=== PATIENT | male | born 1955 | race Caucasian/White ===

== ENCOUNTER 2024-09-24 13:56 | Inpatient (IN) | payer MEDICARE, OTHER ==
[~2024-09-24] VITALS: Ht 177.8 cm; Wt 95.3 kg
[2024-09-24 15:01] LABS: BASOPHILS # (AUTO) 0.1 K/uL (0.0-0.2); BASOPHILS % (AUTO) 0.6 % (0.0-2.0); EOSINOPHILS # (AUTO) 0.2 K/uL (0.0-0.7); EOSINOPHILS % (AUTO) 1.9 % (0.0-6.0); HEMATOCRIT 41 % (39-51); HEMOGLOBIN 14.8 g/dL (13.5-17.5); LYMPHOCYTES # (AUTO) 1.3 K/uL (0.8-4.8); LYMPHOCYTES % (AUTO) 15.1 % (20.0-44.0); MEAN CORPUSCULAR HEMOGLOBIN 33 PG (26.0-33.0); MEAN CORPUSCULAR HGB CONC 36 g/dl (31.0-36.0); MEAN CORPUSCULAR VOLUME 91 fL (80-96); MONOCYTES # (AUTO) 0.6 K/uL (0.1-1.30); MONOCYTES % (AUTO) 7.6 % (2.0-12.0); NEUTROPHILS # (AUTO) 6.4 K/uL (1.8-8.9); NEUTROPHILS % (AUTO) 74.8 % (43.0-81.0); PLATELET COUNT (AUTO) 220 K/uL (150-450); RED BLOOD CELL COUNT(AUTO) 4.52 MIL/uL (4.5-6.0); RED CELL DISTRIBUTION WIDTH 13.6 % (11.5-15.0); WHITE BLOOD COUNT (AUTO) 8.5 K/uL (4.3-11.0)
[2024-09-24 15:16] LABS: CALCIUM, SERUM 9.6 mg/dL (8.5-10.1); CARBON DIOXIDE 28 mmol/L (21-32); CHLORIDE 93 mmol/L (98-107); CREATININE 0.9 mg/dL (0.6-1.3); GLUCOSE 105 mg/dL (74-106); POTASSIUM 4.2 mmol/L (3.5-5.1); SODIUM SERUM 133 mmol/L (136-145); UREA NITROGEN, BLOOD 16 mg/dL (7-18)
[2024-09-24 15:24] LABS: ALANINE AMINOTRANSFERASE 15 U/L (12-78); ALBUMIN 4.3 g/dL (3.4-5.0); ALKALINE PHOSPHATASE 66 U/L (46-116); ASPARTATE AMINOTRANSFERASE 13 U/L (15-37); BILIRUBIN,DIRECT 0.3 mg/dL (0.0-0.2); BILIRUBIN,TOTAL 0.7 mg/dL (0.2-1.0); TOTAL PROTEIN, SERUM 7.8 g/dL (6.4-8.2)
[2024-09-24 15:28] LABS: ACETAMINOPHEN <10 ug/ml (10-30); ALCOHOL, BLOOD < 3 mg/dL (0-10); SALICYLATE 0.3 mg/dL (2.8-20.0)
[2024-09-24 16:05] LABS: APPEARANCE,URINE CLEAR (CLEAR); BILIRUBIN,URINE NEGATIVE (NEGATIVE); BLOOD, URINE NEGATIVE Ery/uL (NEGATIVE); COLOR,URINE YELLOW (YELLOW); KETONES,URINE TRACE mg/dL (NEGATIVE); LEUKOCYTE ESTERASE ,URINE NEGATIVE (NEGATIVE); NITRITE, URINE NEGATIVE (NEGATIVE); PH,URINE 5.5 (5.0-8.0); PROTEIN,URINE NEGATIVE (NEGATIVE); UGLUCOSE NEGATIVE (NEGATIVE); UROBILINOGEN,URINE 0.2 EU/dL (0.2)
[2024-09-24 16:11] LABS: AMPHETAMINE, URINE NEGATIVE (NEGATIVE); BARBITURATE, URINE NEGATIVE (NEGATIVE); BENZODIAZEPINE, URINE NEGATIVE (NEGATIVE); CANNABINOID, URINE NEGATIVE (NEGATIVE); COCCAINE, URINE NEGATIVE (NEGATIVE); OPIATE, URINE NEGATIVE (NEGATIVE); PHENCYCLIDINE SCREEN,URINE NEGATIVE (NEGATIVE)
[2024-09-24 16:20] LABS: ADD URINE CULTURE NO; BACTERIA,URINE Rare /HPF (None Seen); RBC,URINE 0-2 /HPF (0-2); SQUAMOUS EPITHELIAL CELL,UR None Seen /HPF (None Seen); WBC,URINE 0-2 /HPF (0-3)
[2024-09-24] MEDS ORDERED: FLUV50TA3 PO (17:03)
[2024-09-24] MEDS ORDERED: NA P133E RC (17:03)
[2024-09-24] MEDS ORDERED: EMPA10TA PO (17:03)
[2024-09-24] MEDS ORDERED: PANT20TA2 PO (17:03)
[2024-09-24] MEDS ORDERED: FLUD0.1T PO (17:03)
[2024-09-24] MEDS ORDERED: CHOL400T28 PO (17:03)
[2024-09-24] MEDS ORDERED: ACET-2030 PO (17:03)
[2024-09-24] MEDS ORDERED: FURO-145 PO (17:03)
[2024-09-24] MEDS ORDERED: MAG30ORA PO (17:03)
[2024-09-24] MEDS ORDERED: BENZ0.5T43 PO (17:03)
[2024-09-24] MEDS ORDERED: BISA10SU11 RC (17:03)
[2024-09-24] MEDS ORDERED: METF-440 PO (17:03)
[2024-09-24] MEDS ORDERED: IBUP-1955 PO (17:03)
[2024-09-24] MEDS ORDERED: POLY17PO4 PO (17:03)
[2024-09-24] MEDS ORDERED: RISP3TAB5 PO (17:03)
[2024-09-24] MEDS ORDERED: ATOR10TA PO (17:03)
[2024-09-24] MEDS ORDERED: MAGN400O6 PO (17:03)
[2024-09-24] MEDS ORDERED: ACET-868 PO (17:03)
[2024-09-24] MEDS ORDERED: MELO-105 PO (17:03)
[2024-09-24] MEDS ORDERED: AMLO10TA4 PO (17:03)
[2024-09-24] MEDS ORDERED: LEVO75TA PO (17:03)
[2024-09-24] MEDS ORDERED: POTA8CAP20 PO (17:03)
[2024-09-24] MEDS ORDERED: BUSP5TAB3 PO (17:03)
[2024-09-24] MEDS ORDERED: DIVA-78 PO (17:03)
[2024-09-24] MEDS ORDERED: TAMS-12 PO (17:03)
[2024-09-24] MEDS ORDERED: SENN-291 PO (17:03)
[2024-09-24 20:37] VITALS: BP 157/74; TEMP 99.7; O2SAT 99
[2024-09-24] MEDS ORDERED: MAGNESIUM HYDROXIDE 30 ML UDC PO PRN (21:00)
[2024-09-24] MEDS ORDERED: LORAZEPAM 0.5 MG TABLET PO PRN ×2 (21:00)
[2024-09-24] MEDS ORDERED: TEMAZEPAM 7.5 MG CAPSULE PO PRN (21:00)
[2024-09-24] MEDS ORDERED: DIVALPROEX SODIUM 500 MG TABLET.DR PO SCH (22:00)
[2024-09-24] MEDS ORDERED: DEXTROSE 50%-WATER 50 ML DISP.SYRIN IV PRN (22:00)
[2024-09-24] MEDS ORDERED: *INSULIN REGULAR(HUMULIN R)HUM 100 UNIT/ML VIAL SQ PRN (22:00)
[2024-09-24] MEDS ORDERED: INSULIN REGULAR, HUMAN 100 UNIT/ML 3 ML VIAL SQ PRN (22:00)
[2024-09-24 22:10] LABS: THYROID STIMULATING HORMONE 0.87 uIU/mL (0.358-3.74)
[2024-09-24] MEDS: BLOOD SUGAR DIAGNOSTIC 1 EACH STRIP IN ONE (22:19)
[2024-09-24] MEDS: BLOOD SUGAR DIAGNOSTIC 1 EACH STRIP VI SCH (22:23)
[2024-09-24] MEDS: ATORVASTATIN 10 MG TABLET PO SCH (22:23)
[2024-09-25 07:55] LABS: BASOPHILS # (AUTO) 0.1 K/uL (0.0-0.2); BASOPHILS % (AUTO) 0.7 % (0.0-2.0); EOSINOPHILS # (AUTO) 0.2 K/uL (0.0-0.7); HEMATOCRIT 40 % (39-51); HEMOGLOBIN 14.2 g/dL (13.5-17.5); LYMPHOCYTES # (AUTO) 1.4 K/uL (0.8-4.8); LYMPHOCYTES % (AUTO) 18.5 % (20.0-44.0); MEAN CORPUSCULAR HEMOGLOBIN 32 PG (26.0-33.0); MEAN CORPUSCULAR HGB CONC 35 g/dl (31.0-36.0); MEAN CORPUSCULAR VOLUME 91 fL (80-96); MONOCYTES # (AUTO) 0.6 K/uL (0.1-1.30); MONOCYTES % (AUTO) 8.3 % (2.0-12.0); NEUTROPHILS # (AUTO) 5.4 K/uL (1.8-8.9); NEUTROPHILS % (AUTO) 69.5 % (43.0-81.0); PLATELET COUNT (AUTO) 229 K/uL (150-450); RED BLOOD CELL COUNT(AUTO) 4.42 MIL/uL (4.5-6.0); RED CELL DISTRIBUTION WIDTH 13.5 % (11.5-15.0); WHITE BLOOD COUNT (AUTO) 7.7 K/uL (4.3-11.0)
[2024-09-25 08:00] VITALS: BP 154/84; TEMP 97.9; O2SAT 97
[2024-09-25 08:09] LABS: CREATININE 0.8 mg/dL (0.6-1.3); POTASSIUM 4.2 mmol/L (3.5-5.1)
[2024-09-25] MEDS: LEVOTHYROXINE SODIUM 75 MCG TABLET PO SCH (08:26)
[2024-09-25] MEDS: FLUDROCORTISONE 0.1 MG TABLET PO SCH (08:27)
[2024-09-25] MEDS: TAMSULOSIN 0.4 MG CAP.SR.24H PO SCH (08:27)
[2024-09-25] MEDS: AMLODIPINE BESYLATE 10 MG TABLET PO SCH (08:27)
[2024-09-25] MEDS: PANTOPRAZOLE 40 MG TABLET.DR PO SCH (08:27)
[2024-09-25] MEDS: FUROSEMIDE 20 MG TABLET PO SCH (08:27)
[2024-09-25] MEDS: BENZTROPINE MESYLATE (1 MG) 1 MG TABLET PO SCH (08:27)
[2024-09-25] MEDS: CHOLECALCIFEROL 1,000 UNIT TABLET (VIT D3) PO SCH (08:35)
[2024-09-25] MEDS ORDERED: risperiDONE 1 MG TABLET PO SCH (09:00)
[2024-09-25 16:00] VITALS: BP 122/83; TEMP 98; O2SAT 98
[2024-09-25] MEDS: FLUVOXAMINE MALEATE 50 MG TABLET PO SCH (17:33)
[2024-09-25] MEDS: risperiDONE 1 MG TABLET PO SCH (17:33)
[2024-09-25 20:00] VITALS: BP 154/85; TEMP 98.1; O2SAT 99
[2024-09-26 08:00] VITALS: BP 168/91; TEMP 98.1; O2SAT 99
[2024-09-26 16:00] VITALS: BP 150/90; TEMP 97.7; O2SAT 98
[2024-09-26 20:18] VITALS: BP 142/64; TEMP 97.7; O2SAT 96
[2024-09-27 08:00] VITALS: BP 160/97; TEMP 97.7; O2SAT 99
[2024-09-27 16:04] VITALS: BP 148/72; TEMP 98; O2SAT 98
[2024-09-27 22:55] VITALS: BP 135/60; TEMP 98; O2SAT 96
[2024-09-27 22:57] VITALS: BP 135/60; TEMP 98; O2SAT 96
[2024-09-28 08:00] VITALS: BP 140/72; TEMP 97.9; O2SAT 99
[2024-09-28] MEDS: MAG HYDROX/AL HYDROX/SIMETH 30 ML UDC PO PRN (10:36)
[2024-09-28 15:14] VITALS: BP 127/72; TEMP 97.8; O2SAT 99
[2024-09-28 20:00] VITALS: BP 124/69; TEMP 98.3; O2SAT 99
[2024-09-28 20:12] VITALS: BP 119/71; TEMP 98.5; O2SAT 98
[2024-09-29 08:00] VITALS: BP 157/66; TEMP 97.5; O2SAT 97
[2024-09-29 16:00] VITALS: BP 124/56; TEMP 98.7; O2SAT 98
[2024-09-29 19:55] VITALS: BP 116/63; TEMP 98.7; O2SAT 96
[2024-09-29] MEDS: TEMAZEPAM 7.5 MG CAPSULE PO PRN (23:47)
[2024-09-30 08:00] VITALS: BP 141/64; TEMP 98.1; O2SAT 96
[2024-09-30 16:00] VITALS: BP 121/61; TEMP 98.2; O2SAT 100
[2024-09-30 19:56] VITALS: BP 148/72; TEMP 97.5; O2SAT 100
[2024-09-30] MEDS: ACETAMINOPHEN 325 MG TABLET PO PRN (19:59)
[2024-10-01 08:00] VITALS: BP 151/91; TEMP 98; O2SAT 96
[2024-10-01 16:00] VITALS: BP 130/65; TEMP 98.8; O2SAT 98
[2024-10-01 20:00] VITALS: BP 147/70; TEMP 98.4; O2SAT 98
[2024-10-02 08:00] VITALS: BP 151/75; TEMP 97.9; O2SAT 98
[2024-10-02] MEDS: PERMETHRIN 5% CRM 60 GM TUBE TP ONE (12:32)
[2024-10-02 16:00] VITALS: BP 112/83; TEMP 98; O2SAT 98
[2024-10-02 20:00] VITALS: BP 115/82; TEMP 98.2; O2SAT 98
[2024-10-03 08:00] VITALS: BP 126/70; TEMP 97.8; O2SAT 96
[2024-10-03] MEDS: UREA 10% -AHA 4% CREAM 57 GM TUBE TP SCH (08:39)
[2024-10-03] MEDS: CLOTRIMAZOLE/BETAMETASONE DIPROPIONATE 15 GM TUBE TP SCH (08:39)
[2024-10-03 16:00] VITALS: BP 120/59; TEMP 97.7; O2SAT 96
[2024-10-03 20:19] VITALS: BP 123/60; TEMP 98.1; O2SAT 99
[2024-10-04 08:00] VITALS: BP 125/76; TEMP 97.9; O2SAT 99
[2024-10-04 15:47] VITALS: BP 127/65; TEMP 97.9; O2SAT 100
[2024-10-04 20:10] VITALS: BP 124/64; TEMP 98.4; O2SAT 98
[2024-10-05 08:00] VITALS: BP 122/67; TEMP 97.8; O2SAT 96
[2024-10-05 16:00] VITALS: BP 122/65; TEMP 98.1; O2SAT 100
[2024-10-05 20:07] VITALS: BP 115/47; TEMP 98.1; O2SAT 98
[2024-10-06 08:00] VITALS: BP 117/61; TEMP 97.8; O2SAT 96
[2024-10-06 09:25] VITALS: BP 117/61
== END 2024-10-06 13:25 | DRG 885 ==
LOC: ER 14:00 → GPS 19:44
PROVIDERS: ADMIT Psychiatry & Neurology Psychosomatic Medicine
DX: F20.9 Schizophrenia, unspecified (principal); R45.1 Restlessness and agitation; E87.1 Hypo-osmolality and hyponatremia; F29 Unspecified psychosis not due to a substance or known physiological condition; E86.0 Dehydration; Z20.822 Contact with and (suspected) exposure to COVID-19; Z79.899 Other long term (current) drug therapy; G31.84 Mild cognitive impairment of uncertain or unknown etiology; E78.5 Hyperlipidemia, unspecified; F41.9 Anxiety disorder, unspecified; N40.0 Benign prostatic hyperplasia without lower urinary tract symptoms; E11.40 Type 2 diabetes mellitus with diabetic neuropathy, unspecified; J44.9 Chronic obstructive pulmonary disease, unspecified; Z79.84 Long term (current) use of oral hypoglycemic drugs; Z79.890 Hormone replacement therapy; F39 Unspecified mood [affective] disorder; E66.9 Obesity, unspecified; Z68.30 Body mass index [BMI] 30.0-30.9, adult; F42.9 Obsessive-compulsive disorder, unspecified; I10 Essential (primary) hypertension; E03.9 Hypothyroidism, unspecified; B35.3 Tinea pedis; Z78.9 Other specified health status; B86 Scabies; L85.9 Epidermal thickening, unspecified
CPT/HCPCS: 36415; 80048-TC; 80061-TC; 80076-TC; 81001; 82962-TC; 84439-TC; 84443-TC; 84481; 85025-TC; 87081-TC; 97110-TC; 97116-TC; 97530-TC; G0480; J1815